=== PATIENT | male | born 1960 | race Caucasian/White ===

== ENCOUNTER 2023-09-08 13:44 | Outpatient (CLI) | payer BC, SELFPAY | END 2023-09-08 13:45 | disposition home or self-care (01) | LOC: ANHBWCAUD 13:45 | PROVIDERS: PCP Otolaryngology; Visit Provider Otolaryngology | DX: H93.13 Tinnitus, bilateral (principal); H90.3 Sensorineural hearing loss, bilateral | CPT/HCPCS: 92557; 92567 ==